=== PATIENT | female | born 1985 | race Native Hawaiian/Other Pacific Islander ===

== ENCOUNTER 2024-08-11 03:52 | Emergency (ER) | payer OTHER, SELFPAY ==
[2024-08-11 03:56] VITALS: RESP 18; O2SAT 99
[2024-08-11 04:02] VITALS: BP 133/63; PULSE 117; RESP 18; TEMP 36.8; O2SAT 98; BMI 20.9
[2024-08-11] MEDS: hydrOXYzine pamoate 25 MG CAPSULE 50 MG PO (04:39)
[2024-08-11] MEDS: PROPRANOLOL 20 MG TABLET PO (04:45)
--- NOTE | 2024-08-11 04:45 | ED_ITS ---
HPI - General Adult General Chief complaint: Unspecified Complaint, Adult Stated complaint: low heart beat,ears ringing,hands shaking Time Seen by Provider: 08/11/24 04:06 Source: patient Mode of arrival: ambulatory Limitations: language barrier (Program Admin used for interview and discussion of plan) History of Present Illness HPI narrative: 30-year-old female presents the emergency department with feeling of int ermittent heart racing, hand shaking and feeling of what she describes as despair. This is been going on for weeks. It happened again tonight. She reports that she had workup performed at [facility] and she did not know her results. They called to tell her that there were abnormalities a few days ago. They told her there were not any soon appointments and it sounds as though she did not make an appointment to discuss her results. It sounds by her description as though there was something to discuss. They advised her that if she started having very fast or irregular heart rate that she should come to emergency room. She says that she has been having the same racing heart symptoms the last for a few seconds and then go away. She does not know what to do next. There was no loss of consciousness, no shortness of breath, she is not running any fever. There is no vomiting. She is not on any type of treatment, has not had any referrals. When I ask which he was tested for she said diabetes, thyroid, anemia. It sounds as though they did talk to her about depression and anxiety symptoms also, she is planning to go to the clinic when they open this morning to see if she can get an appointment to discuss her results. She has not made an appointment to be evaluated at any other clinic. No prior treatment for similar condition per her report. She reports that her past medical history is benign, denies major long-term health problems. No long-term medications or allergies. Nonsmoker, no alcohol. ROS is notable for the anxiety, palpitations as described above, otherwise denies times 12 systems. Related Data Previous Rx's ?Medication ?Instructions ?Recorded naproxen 250 mg tablet See Rx Instructions PO BID # 30 tabs 08/27/23 hydroxyzine HCl 25 mg tablet 25 mg PO BID PRN #60 tabs 08/11/24 propranolol 60 mg capsule,24 60 mg PO DAILY #30 caps 0 08/11/24 hr,extended release Allergies Allergy/AdvReac Type Severity Reaction Status Date / Time No Known Drug Allergies Allergy Verified 08/11/24 04:04 [facility] Medical History Hyperthyroidism ?E05.90 - Thyrotoxicosis, unspecified without thyrotoxic crisis or storm (ICD-10) No significant past medical history Social History Smoking Status: Never smoker Second hand tobacco smoke exposure: No How often do you have a drink containing alcohol: never AUDIT-C Alcohol total score: 0 Non-prescribed substance use: denies use Exam Const: Vital Signs, click to edit/add: Vital Signs - 24 hr 08/11/24 03:56 08/11/24 04:02 08/11/24 04:49 Temperature 98.3 F 98.3 F Pulse Rate [Pulse Oximeter] 117 H 107 H Respiratory Rate 18 18 Respiratory Rate [ Head] 18 Blood Pressure [Ri ght Upper Arm] 133/63 125/77 Pulse Oximetry 98 98 Oxygen Delivery Me thod Room Air Room Air 08/11/24 04:50 Temperature 98.3 F Pulse Rate [Pulse Oximeter] 107 H Respiratory Rate 18 Respiratory Rate [ Head] Blood Pressure [Ri ght Upper Arm] 125/77 Pulse Oximetry Oxygen Delivery Me thod Documenting provider has reviewed patient's vital signs: yes Common normals: no apparent distress and alert General appearance: well kempt Other: Friendly and cooperative, good historian. HENMT: Common normals: normocephalic Head and scalp: normal to inspection and normocephalic Face and sinus: normal facial exam Throat: posterior oropharynx normal Eye: Other: Does have mild exophthalmos Neck & C-Spine: Common normals: full ROM and no lymphadenopathy General: normal visual inspection Other: Mildly diffusely enlarged thyroid with no obvious discrete mass. Resp: Common normals: normal respiratory effort Effort & inspection: able to speak in complete sentences Cardio: Common normals: regular rate, regular rhythm, S1 normal heart sound, S2 normal heart sound and no murmurs Rate: regular rate Rhythm: regular rhythm Heart sounds: S1 normal and S2 normal GI: Common normals: Normal to inspection, nondistended, normoactive bowel sounds present, soft to palpation, no hepatosplenomegaly and no masses Palpation: soft and no hepatosplenomegaly Extremity: Common normals: normal to inspection and normal capillary refill Neuro: Common normals: moves all extremities and no focal motor deficits Sensorium/orientation: alert Motor exam: strength 5/5 throughout Psych: Appearance: well kempt Attitude: engaged Insight: insight good Judgement: judgment good Skin: Common normals: no rashes or lesions noted General skin exam: no rashes or lesions noted Course Course ED Course: I was able to track down the patient's lab results and she does have findings consistent with hyperthyroidism. EKG is performed. No AFib or other arrhythmia. Heart rate is around 100 at the time of auscultation for me. Does not meet criteria for thyrotoxicosis or thyroid storm at this time. She does need treatment. I do not have the ability to get an ultrasound in the middle of the night, she does need long-term management of this condition. She would benefit from starting a beta-saroj for her cardiac symptoms. Will give propranolol 20 mg p.o. x1 here and some Vistaril for her anxiety. Will start the patient on 60 mg extended-release propranolol daily, may need further dose adjustment. She is fairly petite so I think starting at a lower dose is in her best interest. I have also prescribed some Vistaril to use for anxiety while we are getting things titrated by do think that she will benefit from the propranolol. I stressed that it is important that she does follow up either at [facility] or makes an appointment to be seen at our clinic for further management. She does need further workup and treatment for this. I am limited on what I can offer her in the middle of the night on a holiday weekend. Alarm symptoms were reviewed that would warrant ED presentation. Written instructions are provided. Program Admin used. Vital Signs Vital signs: Initial Vital Signs Respiratory Rate 18 08/11/24 03:56 Vital Signs Respiratory Rate 18 08/11/24 03:56 Temperature 98.3 F 08/11/24 04:50 Pulse Rate 107 H 08/11/24 04:50 Respiratory Rate 18 08/11/24 04:50 Blood Pressure 125/77 08/11/24 04:50 Pulse Oximetry 98 08/11/24 04:49 Oxygen Delivery Method Room Air 08/11/24 04:49 Medications Administered Medications: Generic Name Dose Route Start Last Admin Trade Name Freq PRN Reason Stop Dose Admin Hydroxyzine Pamoate 50 mg 08/11/24 04:30 08/11/24 04:39 Hydroxyzine Pamoate 25 Mg Capsule PO 08/11/24 04:31 50 mg ONCE ONE Administration Propranolol HCl 20 mg 08/11/24 04:32 08/11/24 04:45 Propranolol 20 Mg Tablet PO 08/11/24 04:33 20 mg ONCE ONE Administration Medical Decision Making Lab Data Lab results reviewed: Yes I reviewed the patient's lab results Lab results narrative: Labs reviewed from 08/03/2024. Discharge Plan Discharge Clinical Impression: Hyperthyroidism Patient Disposition: Home w/ Parent or Adult Condition: Stable Instructions: Hyperthyroidism (ED) Additional Instructions: As we discussed, I think you are having some symptoms of increased anxiety and heart palpitations. I was able to track down your outside labs since they were run at our lab, [facility] does not always do this. You are having these abnormal feelings because your thyroid is functioning a little bit too high. I would like to start you on a medication called propranolol, this will help decrease those palpitations and less than your symptoms of anxiety. It will also help protect your heart from going into any dangerous heart rhythms until this can get better sorted out. I really would like for you to make a clinic appointment right away, this does need to be treated. If you cannot get in at [facility], please make an appointment with 1 of our internal medicine providers here at the [facility]. This does need further treatment. These are just not things that I can provide in an emergency department setting. Thankfully, there are no signs of any dangerous emergent condition tonight but it can lead to other health problems if it is not treated. Your dose of the propranolol may need to be adjusted and the provider will likely recommend a different treatment for your thyroid long-term. The propranolol is an excellent short-term solution. I have given you a medication called Vistaril, which will help calm you down and your 1st dose of the propranolol to help slow the heart palpitations. I have sent prescription for the propranolol to be taken every day and then some of the hydroxyzine to take if you are feeling anxious. Remember that this is not the only treatment that is needed and you do still need to see a specialist for your thyroid. [place] comentamos, creo que presenta s?ntomas de aumento de ansiedad y palpitaciones. Pude localizar ebony an?lisis externos, ya que se realizaron en nuestro laboratorio; [facility] no siempre realiza soraida procedimiento. Tiene estas sensaciones anormales porque ramos tiroides est? funcionando un poco m?s de lo normal. Me gustar?a iniciar un tratamiento con propranolol. [place] le ayudar? a disminuir las palpitaciones y a reducir ebony s?ntomas de ansiedad. Tambi?n le ayudar? a proteger ramos coraz?n de ritmos card?acos peligrosos hasta que esto mejore. Le recomiendo que programe jimmy carmen en la cl?aleida de inmediato; esto necesita tratamiento. Si no puede acceder a [facility], por favor, programe jimmy carmen con ning de nuestros m?dicos de medicina interna aqu? en la [facility]. [facility] requiere tratamiento adicional. No puedo ofrecerle estos servicios en un servicio de urgencias. Afortunadamente, no hay signos de ninguna afecci?n emergente peligrosa esta noche, [place] puede derivar en otros problemas de dipika si no se trata. Es posible que sea necesario ajustar ramos dosis de propranolol y es probable que el m?dico le recomiende un tratamiento diferente para la tiroides a harrison plazo. El propranolol es jimmy excelente soluci?n a corto plazo. Le he recetado un medicamento llamado Vistaril, que le ayudar? a calmarse, y la primera dosis de propranolol le ayudar? a disminuir las palpitaciones. Le he enviado jimmy receta para que tome propranolol a diario y, posteriormente, un poco de hidroxicina para que la tome si se siente ansioso. Recuerde que soraida no es el ?venita tratamiento necesario y que, aun as?, debe consultar con un especialista para ramos tiroides. Activity Level: Activity as Tolerated Discharge Diet: Regular Prescriptions: New propranolol 60 mg capsule,extended release 24 hr 60 mg PO DAILY Qty: 30 2RF hydroxyzine HCl 25 mg tablet 25 mg PO BID PRNQty: 60 1RF No Action naproxen 250 mg tablet See Rx Instructions PO BID Qty: 30 0RF Rx Instructions: Take two (2) tablets by mouth twice daily with food for the first three days. Take one (1) tablet by mouth with food twice daily for the next three days. Continue this dose as needed for pain management. Follow Up/Referrals: [facility] [Outside] Provider,Not a Local [Primary Care Provider, Family Practice] Stand Alone Forms: MyHealth Info Instructions
[2024-08-11 04:49] VITALS: BP 125/77; PULSE 107; RESP 18; TEMP 36.8; O2SAT 98
[2024-08-11 04:50] VITALS: BP 125/77; PULSE 107; RESP 18; TEMP 36.8
== END 2024-08-11 04:57 | disposition home or self-care (01) ==
LOC: ED 04:43
PROVIDERS: Emergency Provider Family Medicine
DX: E05.90 Thyrotoxicosis, unspecified without thyrotoxic crisis or storm (principal)
CPT/HCPCS: 93005; 99283; A9270